=== PATIENT | female | born 1985 | race Caucasian/White ===

== ENCOUNTER 2018-12-21 19:16 | Emergency (ER) | payer MEDICAID ==
[~2018-12-21] VITALS: Ht 167.6 cm; Wt 108.9 kg
[2018-12-21 19:20] VITALS: BP_SYST 126
[2018-12-21 20:04] VITALS: BP_SYST 128
== END 2018-12-21 20:04 | disposition home or self-care (01) ==
LOC: SED 19:16
DX: R05 Cough (principal); R03.0 Elevated blood-pressure reading, without diagnosis of hypertension; F32.9 Major depressive disorder, single episode, unspecified; Z98.51 Tubal ligation status; Z88.0 Allergy status to penicillin; Z88.1 Allergy status to other antibiotic agents
CPT/HCPCS: 99283